=== PATIENT | female | born 1995 | race Hispanic/Latino ===

== ENCOUNTER 2024-11-24 16:18 | Outpatient (CLI) | payer OTHER | END 2024-11-24 16:19 | disposition home or self-care (01) | LOC: NAV LAB 16:18 | PROVIDERS: ATTEND Family Medicine | DX: Z00.00 Encounter for general adult medical examination without abnormal findings (principal); E03.4 Atrophy of thyroid (acquired) | CPT/HCPCS: 36415; 84443 ==